=== PATIENT | female | born 1970 ===

== ENCOUNTER 2017-05-02 16:42 | Emergency (ER) | payer SELFPAY ==
--- NOTE | 2017-05-02 17:01 | ED PDOC ---
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 The pain has been steady. Somewhat worse with breathing. It began with a cough congestion and URI which has resolved. No fever or chills. No trauma. No abdominal pain nausea or vomiting. She has never experienced this previously. Past Medical History - Infectious Disease Hx of Infectious Diseases: None - Psychiatric Hx Substance Use: No - Surgical History Hx Section: Yes - Anesthesia Hx Anesthesia: Yes Hx Anesthesia Reactions: No Hx Malignant Hyperthermia: No Family/Social History - Physician Review Nursing Documentation Reviewed: Yes Family/Social History: Unknown Family HX Smoking Status: Never Smoked Hx Alcohol Use: No Hx Substance Use: No Allergies/Home Meds Allergies/Adverse Reactions: Allergies No Known Allergies Allergy (Verified 05/02/17 16:54) Review of Systems - Physician Review All systems were reviewed & negative as marked: Yes - Review of Systems Constitutional: absent: Fatigue, Fevers Respiratory: SOB, Cough. absent: Sputum, Wheezing Cardiovascular: Chest Pain. absent: Palpitations, Syncope Gastrointestinal: absent: Abdominal Pain, Diarrhea, Nausea, Vomiting, Anorexia Genitourinary Female: Normal Skin: Normal Neurological: Normal. absent: Headache, Dizziness, Focal Weakness Physical Exam Vital Signs Temp Pulse Resp BP Pulse Ox 05/02/17 18:24 70 14 112/55 L 100 05/02/17 17:39 75 20 114/63 98 05/02/17 16:50 98.2 F 75 20 122/71 96 Temperature: Afebrile Blood Pressure: Normal Pulse: Regular Respiratory Rate: Normal Appearance: Positive for: Well-Appearing, Non-Toxic, Comfortable Pain Distress: None Mental Status: Positive for: other (awake alert and cooperative) - Systems Exam Head: Present: Atraumatic, Normocephalic Pupils: Present: PERRL Extroacular Muscles: Present: EOMI Conjunctiva: Present: Normal Ears: Present: NORMAL TM, Normal Canal. No: Erythema Mouth: Present: Moist Mucous Membranes Pharnyx: No: ERYTHEMA, EXUDATE, TONSILS ENLARGED Neck: Present: Normal Range of Motion. No: Meningeal Signs, MIDLINE TENDERNESS , Paraspinal Tenderness Respiratory/Chest: Present: Clear to Auscultation, Good Air Exchange. No: Respiratory Distress, Accessory Muscle Use, Decreased Breath Sounds, Tender to Palpation Cardiovascular: Present: Regular Rate and Rhythm, Normal S1, S2. No: Murmurs Abdomen: Present: Normal Bowel Sounds. No: Tenderness, Distention, Peritoneal Signs, Rebound, Guarding Upper Extremity: Present: Normal Inspection. No: Cyanosis, Edema Lower Extremity: Present: Normal Inspection. No: Edema Neurological: Present: GCS=15, CN II-XII Intact, Speech Normal, Motor Func Grossly Intact Skin: Present: Warm, Dry, Normal Color. No: Rashes Psychiatric: Present: Alert, Normal Insight, Normal Concentration Medical Decision Making ED Course and Treatment: 05/02/17 17:03 EKG shows normal sinus rhythm rate approximately [address] or T-wave changes 05/02/17 18:38 Symptoms improved post Toradol. Patient will be treated for pleurisy with nonsteroidals. Follow-up with PMD. Follow up in the ER as needed. D-dimer and troponin were normal. BNP is normal. Workup is unrevealing. X-ray and EKG are normal. - Lab Interpretations Lab Results: 05/02/17 17:30 05/02/17 17:30 Lab Results 05/02/17 17:30: Sodium 141, Potassium 3.6, Chloride 104, Carbon Dioxide 23, Anion Gap 18, BUN 14, Creatinine 0.7, Est GFR ( Amer) > 60, Est GFR (Non- Af Amer) > 60, Random Glucose 110, Calcium 9.5, Total Bilirubin 0.3, AST 30, ALT 30, Alkaline Phosphatase 105, Lactate Dehydrogenase 519, Total Creatine Kinase 98, Troponin I < 0.01, NT-Pro-B Natriuret Pep 15.5, Total Protein 7.6, Albumin 4.3, Globulin 3.3, Albumin/Globulin Ratio 1.3 05/02/17 17:30: D-Dimer, Quantitative 0.39 05/02/17 17:30: WBC 5.0, RBC 4.23, Hgb 11.1 L, Hct 34.0 L, MCV 80.4, MCH 26.2, MCHC 32.6, RDW 13.7, Plt Count 207, MPV 11.3 H, Gran % 42.8 L, Lymph % (Auto) 41.8 H, [place] % (Auto) 9.2 H, Eos % (Auto) 5.6 H, Baso % (Auto) 0.6, Gran # 2.15 , Lymph # 2.1, [place] # 0.5, Eos # 0.3, Baso # 0.03 05/02/17 17:05: Urine Color Yellow, Urine Appearance Clear, Urine pH 6.0, Ur Specific [place] 1.020, Urine Protein Negative, Urine Glucose (UA) Negative, Urine Ketones Negative, Urine Blood Negative, Urine Nitrate Negative, Urine Bilirubin Negative, Urine Urobilinogen 0.2, Ur Leukocyte Esterase Negative, Urine HCG, Qual Negative - RAD Interpretation Radiology Orders: 05/02/17 17:02 CHEST PORTABLE [RAD] Stat Chest 1 view shows no infiltrate effusion or cardiomegaly Multi Care Technician: ED Physician - Medication Orders Current Medication Orders: Discontinued Medications Aspirin (Ecotrin) 325 mg PO STAT STA Stop: 05/02/17 17:03 Last Admin: 05/02/17 17:22 Dose: 325 mg Ketorolac Tromethamine (Toradol) 30 mg IVP ONCE ONE Stop: 05/02/17 17:05 Last Admin: 05/02/17 17:31 Dose: 30 mg MAR Pain Assessment Document 05/02/17 17:31 [facility] (Rec: 05/02/17 17:36 [facility] [id number]) Pain Reassessment Is this a pain reassessment? Yes Sleep Is patient sleeping during reassessment? No Presence of Pain Presence of Pain Yes Pain Scale Used Pain Scale Used Numeric Location Pain Location Body Site Chest Description Description Intermittent Intensity of Pain at present 5 Pain Behavior Facial Grimacing Alleviating Factors/Management Medication Techniques Position Change IVP Administration Document 05/02/17 17:31 [facility] (Rec: 05/02/17 17:36 [facility] [id number]) Charges for Administration # of IVP Administrations 1 Disposition/Present on Arrival - Present on Arrival Any Indicators Present on Arrival: No History of DVT/PE: No History of Uncontrolled Diabetes: No Urinary Catheter: No History of Decub. Ulcer: No History Surgical Site Infection Following: None - Disposition Have Diagnosis and Disposition been Completed?: Yes Diagnosis: Pleuritic chest pain Disposition: HOME/ ROUTINE Disposition Time: 18:39 Patient Plan: Discharge Condition: IMPROVED Discharge Instructions (ExitCare): Chest Pain (ED), Pleurisy (ED) Prescriptions: Naproxen [Naprosyn] 500 mg PO BID #14 tab Referrals: Sabina Estrada, [Primary Care Provider] - Follow up with primary Seman,Cherry Figueroa MD [Medical Doctor] - Follow up with primary Forms: [employer] (Chinese)
[2017-05-02] MEDS ORDERED: Aspirin 325 mg EC Tablets PO STA (17:02)
[2017-05-02 17:28] LABS: URINE APPEARANCE CLEAR (CLEAR); URINE BILIRUBIN NEGATIVE (NEGATIVE); URINE BLOOD NEGATIVE (NEGATIVE); URINE COLOR YELLOW (YELLOW); URINE GLUCOSE (UA) NEGATIVE (NEGATIVE); URINE KETONE NEGATIVE (NEGATIVE); URINE LEUKOCYTE ESTERASE NEGATIVE Leu/uL (NEGATIVE); URINE PROTEIN NEGATIVE mg/dL (<30 mg/dL); URINE UROBILINOGEN 0.2 E.U./dL (<1 E.U./dL)
[2017-05-02 17:55] LABS: ALB/GLOB RATIO 1.3 (1.1-1.8); ALKALINE PHOSPHATASE 105 U/L (38-126); ALT/SGPT 30 U/L (7-56); AST/SGOT 30 U/L (14-36); BILIRUBIN,TOTAL 0.3 mg/dL (0.2-1.3); BLOOD UREA NITROGEN 14 mg/dL (7-21); CALCIUM 9.5 mg/dL (8.4-10.5); CARBON DIOXIDE 23 mmol/L (21-33); CHLORIDE 104 mmol/L (98-107); GFR AFRICAN-AMERICAN > 60; GLUCOSE,RANDOM 110 mg/dL (70-110); POTASSIUM 3.6 mmol/L (3.6-5.0); SODIUM 141 mmol/L (132-148); TOTAL PROTEIN 7.6 g/dL (5.8-8.3)
[2017-05-02 18:02] LABS: BASO # 0.03 K/mm3 (0.0-2.0); BASO % 0.6 % (0.0-3.0); EOS # 0.3 (0.0-0.7); EOS % 5.6 % (1.5-5.0); GRAN # 2.15 (1.4-6.5); GRAN % 42.8 % (50.0-68.0); LYMPH # 2.1 (1.2-3.4); LYMPH % 41.8 % (22.0-35.0); MEAN CELL VOLUME 80.4 fl (80.0-105.0); MEAN CORPUSCULAR HEMOGLOBIN 26.2 pg (25.0-35.0); MEAN CORPUSCULAR HGB CONC 32.6 g/dl (31.0-37.0); MEAN PLATELET VOLUME 11.3 fl (7.0-11.0); MONO # 0.5 (0.1-0.6); MONO % 9.2 % (1.0-6.0); RED CELL DISTRIBUTION WIDTH 13.7 % (11.5-14.5)
[2017-05-02 18:15] LABS: TROPONIN I < 0.01 ng/mL
[2017-05-02 18:27] VITALS: O2SAT 100
[2017-05-02 18:47] VITALS: TEMP 98
[2017-05-02 19:19] VITALS: BP 129/71; PULSE 75; RESP 20
--- NOTE | 2017-05-03 10:42 | RAD ---
HISTORY: cp COMPARISON: No prior. FINDINGS: LUNGS: No active pulmonary disease. PLEURA: No significant pleural effusion identified, no pneumothorax apparent. CARDIOVASCULAR: Normal. OSSEOUS STRUCTURES: No significant abnormalities. VISUALIZED UPPER ABDOMEN: Normal. OTHER FINDINGS: None. IMPRESSION: No active disease. Concordant results with the preliminary interpretation rendered by the emergency department physician procedure.
--- NOTE | 2017-05-03 19:51 | CARD ---
APPROVED REPORT EKG Measurement Heart [id number] <Conclusion> Normal sinus rhythm Normal ECG
== END 2017-05-02 19:20 | disposition home or self-care (01) ==
LOC: ED 16:42
DX: R09.1 Pleurisy (principal)
CPT/HCPCS: 71010; 80053; 81003; 82550; 83615; 83880; 84484; 84703; 85025; 85378; 93005; 96374; 99284; J1885